=== PATIENT | female | born 1975 | race Caucasian/White ===

== ENCOUNTER 2021-01-29 14:44 | Emergency (ER) | payer SELFPAY ==
[~2021-01-29] VITALS: Ht 170.2 cm; Wt 90.7 kg
[2021-01-29] MEDS ORDERED: CLEOCIN HCL300 MG PO (15:19)
== END 2021-01-29 15:28 | disposition home or self-care (01) ==
LOC: ED 14:44
DX: L02.01 Cutaneous abscess of face (principal); K59.00 Constipation, unspecified; I10 Essential (primary) hypertension; F17.200 Nicotine dependence, unspecified, uncomplicated; Z88.0 Allergy status to penicillin
CPT/HCPCS: 74018; 99283-25

== ENCOUNTER 2021-02-12 15:43 | Emergency (ER) | payer OTHER ==
[~2021-02-12] VITALS: Ht 170.2 cm; Wt 90.7 kg
[~2021-02-12 15:43] MED LIST: CLEOCIN HCL300 MG PO
--- OUTSIDE RECORDS SUMMARY | 2021-02-12 15:46 | XMS ---
PreManage Notification: DOYLE MAGALLON Security Operator Specialist Communications Events No recent Security Events currently on file CRITERIA MET - [facility] - 2 Visits in 30 Days CARE PROVIDERS LIZZY SIDDIQUI [facility] 10/09/2019-Current PHONE: [phone] Cherie has no Care Guidelines for this patient. Amando VISIT COUNT (12 MO.) 1 Lashonda Kenney [address] [place] [address] TOTAL 3 NOTE: Visits indicate total known visits. ED/UCC VISIT TRACKING (12 MO.) 02/12/2021 15:44 DANIEL Sharma [place] TYPE: Emergency COMPLAINT: - DIZZY,N/V, HEADACHE 01/29/2021 14:45 DANIEL Sharma [place] TYPE: Emergency COMPLAINT: - SKIN ISSUE DIAGNOSES: - Nicotine dependence, unspecified, uncomplicated - Essential (primary) hypertension - Constipation, unspecified - Allergy status to penicillin - Cutaneous abscess of face 10/23/2020 05:53 Lashonda CLEMENTS TYPE: Emergency COMPLAINT: - AMB/BACK PAIN DIAGNOSES: - Nicotine dependence, unspecified, uncomplicated - Personal history of malignant neoplasm of breast - Other stimulant use, unspecified with withdrawal - Suicidal ideations - Major depressive disorder, single episode, unspecified INPATIENT VISIT TRACKING (12 MO.) No inpatient visits to display in this time frame [email or web address]
--- NOTE | 2021-02-13 11:53 | EKG ---
[facility] [address] [facility] [place], [place] [address] Signed Normal sinus rhythm Possible Left atrial enlargement Possible Anterior infarct , age undetermined Abnormal ECG No previous ECGs available Confirmed by MOON DESOUZA DO ([id number]) on 02/13/2021 11:53:21 AM Electronically Signed By: MOON DESOUZA DO 02/13/21 1153 PATIENT NAME: DOYLE MAGALLON Electrocardiogram DATE OF : 77 PHYSICIAN: MOON DESOUZA DO REPORT #: [id number] REPORT IS CONFIDENTIAL AND NOT TO BE RELEASED WITHOUT AUTHORIZATION
== END 2021-02-12 20:21 | disposition home or self-care (01) ==
LOC: ED 15:43
DX: R10.10 Upper abdominal pain, unspecified (principal); R11.2 Nausea with vomiting, unspecified; F15.90 Other stimulant use, unspecified, uncomplicated; I10 Essential (primary) hypertension; Z85.3 Personal history of malignant neoplasm of breast; F17.200 Nicotine dependence, unspecified, uncomplicated; Z88.0 Allergy status to penicillin
CPT/HCPCS: 76705; 80053; 81001; 83690; 83735; 84484; 84703; 85025; 93005; 93010; 99284-25; J2405; J7030

== ENCOUNTER 2021-02-19 10:02 | Emergency (ER) | payer OTHER ==
[~2021-02-19] VITALS: Ht 170.2 cm; Wt 90.7 kg
--- OUTSIDE RECORDS SUMMARY | 2021-02-19 10:04 | XMS ---
PreManage Notification: DOYLE MAGALLON Security Panel Wirer Events No recent Security Events currently on file CRITERIA MET - [facility] - 2 Visits in 30 Days CARE PROVIDERS LIZZY SIDDIQUI [facility] 10/09/2019-Current PHONE: [phone] Cherie has no Care Guidelines for this patient. Care History Medical/Surgical 02/14/2021 [facility] - CHW CALLED PATIENT- PATIENT DID NOT ANSWER HER PHONE-CHW LEFT A MESSAGE FOR A RETURN CALL PATIENT WOULD BENEFIT FROM [facility] REFERRAL IF PATIENT IS ACCEPTING- IF PATIENT IS ACCEPTING PLEASE CONTACT [phone]. EEm VISIT COUNT (12 MO.) [facility] NOTE: Visits indicate total known visits. ED/UCC VISIT TRACKING (12 MO.) 02/19/2021 10:02 DANIEL Sharma [place] TYPE: Emergency COMPLAINT: - HAND NUMBNESS 02/12/2021 15:44 DANIEL Sharma [place] TYPE: Emergency COMPLAINT: - ABD PN DIAGNOSES: - Upper abdominal pain, unspecified - Nicotine dependence, unspecified, uncomplicated - Nausea with vomiting, unspecified - Other stimulant use, unspecified, uncomplicated - Personal history of malignant neoplasm of breast - Allergy status to penicillin - Essential (primary) hypertension 01/29/2021 14:45 DANIEL Rivas TYPE: Emergency COMPLAINT: - SKIN ISSUE DIAGNOSES: [...] visits to display in this time frame [id number]
== END 2021-02-19 10:27 | disposition home or self-care (01) ==
LOC: ED 10:02
DX: F15.10 Other stimulant abuse, uncomplicated (principal); I10 Essential (primary) hypertension; Z85.3 Personal history of malignant neoplasm of breast; F17.200 Nicotine dependence, unspecified, uncomplicated; Z88.0 Allergy status to penicillin
CPT/HCPCS: 99283

== ENCOUNTER 2022-04-03 10:52 | Emergency (ER) | payer OTHER ==
[~2022-04-03] VITALS: Ht 170.2 cm; Wt 90.7 kg
--- OUTSIDE RECORDS SUMMARY | 2022-04-03 10:56 | XMS ---
PreManage Notification: DOYLE MAGALLON Security Barrel Charrer Events 1 event(s) in the past 18 months Most recent security events: Elopement at [facility] 03/25/2021 17:31 - Other Details: PATIENT LWBS. CRITERIA MET - PDMP CARE PROVIDERS LIZZY SIDDIQUI [facility] 10/09/2019-Current PHONE: [phone] Cherie has no Care Guidelines for this patient. Care History Medical/Surgical 02/21/2021 [facility] - CHW CALLED PATIENT-PATIENT ANSWERED AND STATED SHE DOES NOT WANT ANY HELP AND IF SHE DOES SHE WILL REACH OUT WHEN SHE WANTS TO. - CHW ADVISED OF ED VISIT VS PCP USE AND PATIENT GOT UPSET AND HUNG UP THE PHONE. 02/14/2021 [facility] - CHW CALLED PATIENT- PATIENT DID NOT ANSWER HER PHONE-CHW LEFT A MESSAGE FOR A RETURN CALL PATIENT WOULD BENEFIT FROM [facility] REFERRAL IF PATIENT IS ACCEPTING- IF PATIENT IS ACCEPTING PLEASE CONTACT [phone]. E.D. VISIT COUNT (12 MO.) 1 DANIEL Arias TOTAL 1 NOTE: Visits indicate total known visits. ED/UCC VISIT TRACKING (12 MO.) 04/03/2022 10:53 DANIEL Sharma [place] TYPE: Emergency COMPLAINT: - L HAND SWELLING INPATIENT VISIT TRACKING (12 MO.) No inpatient visits to display in this time frame [email or web address]
[2022-04-03] MEDS ORDERED: CEPHALEXIN500 M1 PO (13:53)
== END 2022-04-03 14:25 | disposition home or self-care (01) ==
LOC: ED 10:52
DX: L03.114 Cellulitis of left upper limb (principal); I10 Essential (primary) hypertension; F41.9 Anxiety disorder, unspecified; F17.200 Nicotine dependence, unspecified, uncomplicated; Z23 Encounter for immunization; Z88.0 Allergy status to penicillin
CPT/HCPCS: 36415; 73201; 80053; 83605; 84703; 85025; 90471; 90715; 96366; 96375; 99284-25; J0696; J1885; Q9967